=== PATIENT | male | born 1995 | race African-American/Black ===

== ENCOUNTER 2022-04-19 13:10 | Inpatient (IN) | payer OTHER ==
[2022-04-19 14:26] LABS: BASO % 0.3 % (0.0-1.0); EOS % 0.1 % (0.0-3.0); HEMOGLOBIN 14.4 g/dl (13.5-17.5); LYMPH # 1.3 10^3/uL (1.5-5.0); LYMPH % 14.2 % (24.0-44.0); MEAN CORPUSCULAR HEMOGLOBIN 25.7 pg (27.0-33.0); MEAN CORPUSCULAR HGB CONC 32.7 g/dl (32.0-36.5); MEAN CORPUSCULAR VOLUME 78.4 fl (80.0-96.0); MONO # 0.8 10^3/uL (0.0-0.8); MONO % 8.9 % (2.0-8.0); NEUTROPHILS # 7.2 10^3/uL (1.5-8.5); NEUTROPHILS % 76.2 % (36.0-66.0); PLATELET COUNT, AUTOMATED 290 10^3/uL (150-450); RED BLOOD COUNT 5.61 10^6/uL (4.30-6.10); WHITE BLOOD COUNT 9.5 10^3/uL (4.0-10.0)
[2022-04-19 14:55] LABS: ALBUMIN 4.3 GM/DL (3.2-5.2); ALT/SGPT 24 U/L (12-78); BILIRUBIN,DIRECT 0.2 MG/DL (0.0-0.2); BILIRUBIN,TOTAL 0.6 MG/DL (0.2-1.0); BLOOD UREA NITROGEN 17 MG/DL (7-18); CALCIUM LEVEL 9.1 MG/DL (8.5-10.1); CARBON DIOXIDE LEVEL 24 MEQ/L (21-32); CHLORIDE LEVEL 104 MEQ/L (98-107); CREATININE FOR GFR 1.22 MG/DL (0.70-1.30); ETHYL ALCOHOL (ETHANOL) < 0.003 % (0.000-0.010); GLOMERULAR FILTRATION RATE > 60.0 (>60); GLUCOSE, FASTING 105 MG/DL (70-100); POTASSIUM SERUM 4.1 MEQ/L (3.5-5.1); SALICYLATE LEVEL < 1.7 MG/DL (5.0-30.0); SODIUM LEVEL 137 MEQ/L (136-145); THYROID STIMULATING HORMONE 0.907 uIU/ML (0.358-3.740); TOTAL PROTEIN 7.7 GM/DL (6.4-8.2)
[2022-04-19 15:35] LABS: AMPHETAMINES LEVEL URINE NEGATIVE (NEGATIVE); BARBITURATES URINE NEGATIVE (NEGATIVE); BENZODIAZEPINES URINE NEGATIVE (NEGATIVE); CANNABINOIDS URINE NEGATIVE (NEGATIVE); COCAINE METABOLITE URINE NEGATIVE (NEGATIVE); METHADONE URINE NEGATIVE (NEGATIVE); OPIATES URINE NEGATIVE (NEGATIVE); PHENCYCLIDINE URINE NEGATIVE (NEGATIVE)
[2022-04-19] MEDS ORDERED: diazePAM 10MG/2ML SYRINGE (J3360 PER 5MG) IM ONE (16:15)
[2022-04-19] MEDS ORDERED: OLANZapine INTRAMUSCULAR 10MG VIAL IM ONE (16:15)
[2022-04-19] MEDS ORDERED: HOME MED LIST COMPLETE! XX SCH (19:35)
[2022-04-19 19:40] LABS: ACETAMINOPHEN LEVEL < 2.0 UG/ML (0.0-30.0)
[2022-04-20] MEDS ORDERED: OLANZapine INTRAMUSCULAR 10MG VIAL IM ONE (00:50)
[2022-04-20] MEDS ORDERED: diazePAM 2 MG TAB PO ONE (03:20)
[2022-04-20] MEDS ORDERED: diazePAM 5MG TABLET PO ONE ×2 (07:45→16:10)
[2022-04-20 12:10] LABS: RSV AMPLIFICATION NEGATIVE (NEGATIVE)
[2022-04-20] MEDS ORDERED: OLANZapine ORAL DISINTEGRATING TAB 5MG PO ONE (20:40)
[2022-04-21] MEDS ORDERED: diazePAM 5MG TABLET PO ONE ×2 (00:55→07:50)
[2022-04-21] MEDS ORDERED: HALOPERIDOL 5MG/ML VIAL (J1630 PER 1) IM STA (03:44)
[2022-04-21] MEDS: NICOTINE 21MG/24HR 1 EA TRANSDERMAL TD SCH (09:00)
[2022-04-21] MEDS ORDERED: MOM 30ML SUSPENSION UDC PO PRN (14:45)
[2022-04-21] MEDS ORDERED: MAALOX 30 ML SUSP *UDC PO PRN (14:45)
[2022-04-21 16:02] VITALS: BP 131/98
[2022-04-21] MEDS: traZODone 50 MG TAB PO PRN (21:07)
[2022-04-22] MEDS: LORazepam 2 MG TAB PO PRN (02:37)
[2022-04-22] MEDS: NICOTINE 21MG/24HR 1 EA TRANSDERMAL TD SCH (09:00)
[2022-04-22 18:08] VITALS: BP 143/96
[2022-04-22] MEDS: traZODone 50 MG TAB PO PRN (21:34)
[2022-04-22] MEDS: BENZTROPINE 1 MG TAB PO SCH (21:34)
[2022-04-22] MEDS: risperiDONE 1 MG TAB PO SCH (21:34)
[2022-04-22] MEDS: DIVALPROEX 250MG *ER* TAB PO SCH (21:34)
[2022-04-23] MEDS: LORazepam 2 MG TAB PO PRN (04:23)
[2022-04-23 07:00] VITALS: BP 123/78
[2022-04-23] MEDS: risperiDONE 2 MG TAB PO SCH ×2 (09:00→20:01)
[2022-04-23] MEDS: NICOTINE 21MG/24HR 1 EA TRANSDERMAL TD SCH (09:00)
[2022-04-23] MEDS: BENZTROPINE 1 MG TAB PO SCH ×2 (09:00→20:01)
[2022-04-23] MEDS: risperiDONE 1 MG TAB PO SCH (09:00)
[2022-04-23 10:37] VITALS: BP 131/78
[2022-04-23 13:47] LABS: CHOLESTEROL RISK RATIO 2.424 (<5)
[2022-04-23 18:14] VITALS: BP 148/81
[2022-04-23] MEDS: DIVALPROEX 250MG *ER* TAB PO SCH (20:00)
[2022-04-23] MEDS: traZODone 50 MG TAB PO PRN (20:00)
[2022-04-23] MEDS: ACETAMINOPHEN TAB 650MG DOSE (2X325MG) PO PRN (20:03)
[2022-04-24 06:33] VITALS: BP 132/79
[2022-04-24] MEDS: NICOTINE 21MG/24HR 1 EA TRANSDERMAL TD SCH (08:22)
[2022-04-24] MEDS: risperiDONE 2 MG TAB PO SCH ×2 (08:22→21:20)
[2022-04-24] MEDS: BENZTROPINE 1 MG TAB PO SCH ×2 (08:22→21:20)
[2022-04-24 10:36] LABS: BLOOD UREA NITROGEN 12 MG/DL (7-18); CARBON DIOXIDE LEVEL 28 MEQ/L (21-32); CHLORIDE LEVEL 107 MEQ/L (98-107); CREATININE FOR GFR 0.99 MG/DL (0.70-1.30); GLOMERULAR FILTRATION RATE > 60.0 (>60); GLUCOSE, FASTING 80 MG/DL (70-100); POTASSIUM SERUM 4.3 MEQ/L (3.5-5.1); SODIUM LEVEL 142 MEQ/L (136-145)
[2022-04-24] MEDS ORDERED: BENZTROPINE 2 MG TAB PO ONE (13:00)
[2022-04-24 18:00] VITALS: BP 128/73
[2022-04-24] MEDS: traZODone 50 MG TAB PO PRN (21:20)
[2022-04-24] MEDS: DIVALPROEX 500MG *ER* TAB PO SCH (21:20)
[2022-04-25 07:15] VITALS: BP 136/87
[2022-04-25] MEDS: NICOTINE 21MG/24HR 1 EA TRANSDERMAL TD SCH (09:00)
[2022-04-25] MEDS: BENZTROPINE 1 MG TAB PO SCH ×2 (09:37→20:56)
[2022-04-25] MEDS: risperiDONE 2 MG TAB PO SCH ×2 (09:37→20:56)
[2022-04-25 18:13] VITALS: BP 116/63
[2022-04-25] MEDS: traZODone 50 MG TAB PO PRN (20:56)
[2022-04-25] MEDS: DIVALPROEX 500MG *ER* TAB PO SCH (20:56)
[2022-04-26 06:00] VITALS: BP 134/81
[2022-04-26] MEDS: NICOTINE 21MG/24HR 1 EA TRANSDERMAL TD SCH (09:00)
[2022-04-26] MEDS: BENZTROPINE 1 MG TAB PO SCH ×2 (09:20→21:26)
[2022-04-26] MEDS: risperiDONE 2 MG TAB PO SCH ×2 (09:20→21:26)
[2022-04-26 16:06] VITALS: BP 150/87
[2022-04-26] MEDS: DIVALPROEX 500MG *ER* TAB PO SCH (21:26)
[2022-04-27 06:53] VITALS: BP 126/72
[2022-04-27] MEDS: NICOTINE 21MG/24HR 1 EA TRANSDERMAL TD SCH (09:00)
[2022-04-27] MEDS: BENZTROPINE 1 MG TAB PO SCH ×2 (09:42→21:08)
[2022-04-27] MEDS: risperiDONE 2 MG TAB PO SCH ×2 (09:42→21:08)
[2022-04-27 18:33] VITALS: BP 134/85
[2022-04-27] MEDS: DIVALPROEX 500MG *ER* TAB PO SCH (21:09)
[2022-04-28 06:48] VITALS: BP 129/86
[2022-04-28] MEDS: NICOTINE 21MG/24HR 1 EA TRANSDERMAL TD SCH (09:00)
[2022-04-28] MEDS: BENZTROPINE 1 MG TAB PO SCH ×2 (09:25→20:03)
[2022-04-28] MEDS: risperiDONE 2 MG TAB PO SCH ×2 (09:25→20:03)
[2022-04-28 18:55] VITALS: BP 132/66
[2022-04-28] MEDS: traZODone 50 MG TAB PO PRN (20:03)
[2022-04-28] MEDS: DIVALPROEX 500MG *ER* TAB PO SCH (20:04)
[2022-04-28] MEDS: LORazepam 2 MG TAB PO PRN (21:32)
[2022-04-29 07:04] VITALS: BP 120/86
[2022-04-29] MEDS: NICOTINE 21MG/24HR 1 EA TRANSDERMAL TD SCH (08:50)
[2022-04-29] MEDS: BENZTROPINE 1 MG TAB PO SCH ×2 (08:50→20:57)
[2022-04-29] MEDS: risperiDONE 2 MG TAB PO SCH ×2 (08:50→20:57)
[2022-04-29] MEDS: ACETAMINOPHEN TAB 650MG DOSE (2X325MG) PO PRN (17:25)
[2022-04-29 17:46] VITALS: BP 137/88
[2022-04-29] MEDS: traZODone 50 MG TAB PO PRN (20:56)
[2022-04-29] MEDS: DIVALPROEX 500MG *ER* TAB PO SCH (20:57)
[2022-04-30 06:42] VITALS: BP 103/61
[2022-04-30] MEDS: BENZTROPINE 1 MG TAB PO SCH ×2 (08:57→20:04)
[2022-04-30] MEDS: NICOTINE 21MG/24HR 1 EA TRANSDERMAL TD SCH (08:58)
[2022-04-30 18:41] VITALS: BP 124/68
[2022-04-30] MEDS: DIVALPROEX 500MG *ER* TAB PO SCH (20:04)
[2022-04-30] MEDS: risperiDONE 2 MG TAB PO SCH (20:04)
[2022-05-01 07:00] VITALS: BP 131/86
[2022-05-01] MEDS: NICOTINE 21MG/24HR 1 EA TRANSDERMAL TD SCH (09:00)
[2022-05-01] MEDS ORDERED: BENZTROPINE 1 MG TAB PO PRN (09:25)
[2022-05-01] MEDS: traZODone 50 MG TAB PO PRN (20:53)
[2022-05-01] MEDS: risperiDONE 2 MG TAB PO SCH (20:53)
[2022-05-01] MEDS: DIVALPROEX 500MG *ER* TAB PO SCH (20:54)
[2022-05-01] MEDS: ACETAMINOPHEN TAB 650MG DOSE (2X325MG) PO PRN (22:26)
[2022-05-02 06:00] VITALS: BP 133/76
[2022-05-02] MEDS: ACETAMINOPHEN TAB 650MG DOSE (2X325MG) PO PRN ×2 (07:31→22:18)
[2022-05-02] MEDS: NICOTINE 21MG/24HR 1 EA TRANSDERMAL TD SCH (09:00)
[2022-05-02 17:20] VITALS: BP 157/82
[2022-05-02] MEDS: traZODone 50 MG TAB PO PRN (20:10)
[2022-05-02] MEDS: DIVALPROEX 500MG *ER* TAB PO SCH (22:19)
[2022-05-02] MEDS: risperiDONE 3 MG TAB PO SCH (22:20)
[2022-05-03] MEDS: LORazepam 2 MG TAB PO PRN (02:30)
[2022-05-03 06:45] VITALS: BP 132/67
[2022-05-03] MEDS: NICOTINE 21MG/24HR 1 EA TRANSDERMAL TD SCH (09:00)
[2022-05-03 17:32] VITALS: BP 129/84
[2022-05-03] MEDS: traZODone 50 MG TAB PO PRN (20:29)
[2022-05-03] MEDS: risperiDONE 3 MG TAB PO SCH (20:29)
[2022-05-03] MEDS: ACETAMINOPHEN TAB 650MG DOSE (2X325MG) PO PRN (20:29)
[2022-05-03] MEDS: DIVALPROEX 500MG *ER* TAB PO SCH (20:29)
[2022-05-04 06:00] VITALS: BP 135/87
[2022-05-04] MEDS: NICOTINE 21MG/24HR 1 EA TRANSDERMAL TD SCH (07:52)
[2022-05-04] MEDS: ACETAMINOPHEN TAB 650MG DOSE (2X325MG) PO PRN ×2 (10:44→19:20)
[2022-05-04] MEDS ORDERED: PALIPERIDONE PALMITATE 234MG/1.5ML INJ (INVEGA)(FREE PSY INPT ONLY) IM ONE (13:00)
[2022-05-04 18:17] VITALS: BP 129/72
[2022-05-04] MEDS: traZODone 50 MG TAB PO PRN (20:12)
[2022-05-04] MEDS: DIVALPROEX 500MG *ER* TAB PO SCH (20:12)
[2022-05-04] MEDS: QUEtiapine FUMARATE 50MG TAB PO SCH (22:43)
[2022-05-05 06:35] VITALS: BP 142/89
[2022-05-05] MEDS: NICOTINE 21MG/24HR 1 EA TRANSDERMAL TD SCH (09:00)
[2022-05-05] MEDS: QUEtiapine FUMARATE 50MG TAB PO SCH ×2 (09:31→20:05)
[2022-05-05 18:14] VITALS: BP 154/88
[2022-05-05] MEDS: DIVALPROEX 500MG *ER* TAB PO SCH (20:05)
[2022-05-06] MEDS: traZODone 50 MG TAB PO PRN ×2 (01:11→20:04)
[2022-05-06 06:41] VITALS: BP 135/92
[2022-05-06] MEDS: QUEtiapine FUMARATE 50MG TAB PO SCH ×3 (09:00→20:04)
[2022-05-06] MEDS: NICOTINE 21MG/24HR 1 EA TRANSDERMAL TD SCH (09:00)
[2022-05-06 19:17] VITALS: BP 134/84
[2022-05-06] MEDS: DIVALPROEX 500MG *ER* TAB PO SCH (20:04)
[2022-05-07 06:38] VITALS: BP 125/84
[2022-05-07] MEDS ORDERED: PALIPERIDONE PALMITATE 156MG/1ML INJ(INVEGA)(FREE PSY INPT ONLY) IM ONE (09:00)
[2022-05-07] MEDS: NICOTINE 21MG/24HR 1 EA TRANSDERMAL TD SCH (09:00)
[2022-05-07] MEDS ORDERED: NICO21PAT TD (09:04)
[2022-05-07] MEDS ORDERED: BENZ-52 PO (09:04)
[2022-05-07] MEDS ORDERED: TRAZ-252 PO (09:04)
[2022-05-07] MEDS ORDERED: DEPA500T2 PO ×2 (09:04→09:05)
[2022-05-07] MEDS ORDERED: INVE234I IM (09:05)
[2022-05-07] MEDS: QUEtiapine FUMARATE 50MG TAB PO SCH (09:12)
== END 2022-05-07 09:56 | disposition home or self-care (01) | DRG 885 ==
LOC: M ED 13:10 → M ED INP 04-21 15:27 → M PSY 04-21 15:57
PROVIDERS: ADMIT Psychiatry & Neurology Psychiatry; ATTEND Psychiatry & Neurology Psychiatry
DX: F25.0 Schizoaffective disorder, bipolar type (principal); M62.82 Rhabdomyolysis; F12.159 Cannabis abuse with psychotic disorder, unspecified; Z20.822 Contact with and (suspected) exposure to COVID-19

== ENCOUNTER 2022-06-09 10:53 | Inpatient (IN) | payer OTHER ==
[~2022-06-09] VITALS: Ht 185.4 cm; Wt 90.9 kg
[~2022-06-09 10:53] MED LIST: BENZ-52 PO; DEPA500T2 PO; INVE234I IM; NICO21PAT TD; TRAZ-252 PO
[2022-06-09 11:40] LABS: HEMATOCRIT 43.2 % (42.0-52.0); HEMOGLOBIN 13.6 g/dl (13.5-17.5); MEAN CORPUSCULAR HEMOGLOBIN 25.5 pg (27.0-33.0); MEAN CORPUSCULAR HGB CONC 31.5 g/dl (32.0-36.5); MEAN CORPUSCULAR VOLUME 81.1 fl (80.0-96.0); PLATELET COUNT, AUTOMATED 265 10^3/uL (150-450); RED BLOOD COUNT 5.33 10^6/uL (4.30-6.10); WHITE BLOOD COUNT 6.8 10^3/uL (4.0-10.0)
[2022-06-09 12:11] LABS: AMPHETAMINES LEVEL URINE NEGATIVE (NEGATIVE); BARBITURATES URINE NEGATIVE (NEGATIVE); BENZODIAZEPINES URINE NEGATIVE (NEGATIVE); CANNABINOIDS URINE NEGATIVE (NEGATIVE); COCAINE METABOLITE URINE NEGATIVE (NEGATIVE); METHADONE URINE NEGATIVE (NEGATIVE); OPIATES URINE NEGATIVE (NEGATIVE); PHENCYCLIDINE URINE NEGATIVE (NEGATIVE)
[2022-06-09 12:27] LABS: ACETAMINOPHEN LEVEL < 2.0 UG/ML (10.0-30.0); ALBUMIN 4.1 GM/DL (3.2-5.2); ALT/SGPT 22 U/L (12-78); BILIRUBIN,DIRECT 0.1 MG/DL (0.0-0.2); BILIRUBIN,TOTAL 0.3 MG/DL (0.2-1.0); BLOOD UREA NITROGEN 15 MG/DL (7-18); CALCIUM LEVEL 9.7 MG/DL (8.5-10.1); CARBON DIOXIDE LEVEL 31 MEQ/L (21-32); CHLORIDE LEVEL 104 MEQ/L (98-107); CREATININE FOR GFR 1.03 MG/DL (0.70-1.30); ETHYL ALCOHOL (ETHANOL) 0.003 % (0.000-0.010); GLOMERULAR FILTRATION RATE > 60.0 (>60); GLUCOSE, FASTING 96 MG/DL (70-100); POTASSIUM SERUM 4.1 MEQ/L (3.5-5.1); SALICYLATE LEVEL < 1.7 MG/DL (5.0-30.0); SODIUM LEVEL 139 MEQ/L (136-145); THYROID STIMULATING HORMONE 0.465 uIU/ML (0.358-3.740); TOTAL PROTEIN 7.7 GM/DL (6.4-8.2)
[2022-06-09 12:31] LABS: RSV AMPLIFICATION NEGATIVE (NEGATIVE)
[2022-06-09] MEDS ORDERED: ACETAMINOPHEN TAB 650MG DOSE (2X325MG) PO ONE (14:30)
[2022-06-09] MEDS ORDERED: INVE234I IM (14:52)
[2022-06-09] MEDS ORDERED: HOME MED LIST COMPLETE! XX SCH (14:55)
[2022-06-11] MEDS ORDERED: ACETAMINOPHEN TAB 650MG DOSE (2X325MG) PO ONE (18:20)
[2022-06-11] MEDS ORDERED: ACETAMINOPHEN TAB 650MG DOSE (2X325MG) PO PRN (19:05)
[2022-06-11] MEDS ORDERED: MAALOX 30 ML SUSP *UDC PO PRN (19:05)
[2022-06-11] MEDS ORDERED: MOM 30ML SUSPENSION UDC PO PRN (19:05)
[2022-06-11] MEDS ORDERED: NICOTINE 21MG/24HR 1 EA TRANSDERMAL TD PRN (19:05)
[2022-06-12 01:20] VITALS: BP 115/77
[2022-06-12 16:19] VITALS: BP 120/66
[2022-06-12] MEDS: ARIPiprazole 10 MG TAB PO SCH (20:33)
[2022-06-13 06:29] VITALS: BP 119/67
[2022-06-13 16:48] VITALS: BP 123/75
[2022-06-13] MEDS: ARIPiprazole 10 MG TAB PO SCH (20:25)
[2022-06-13] MEDS: traZODone 50 MG TAB PO PRN (20:25)
[2022-06-14 06:20] VITALS: BP 119/74
[2022-06-14 17:19] VITALS: BP 122/62
[2022-06-14] MEDS: traZODone 50 MG TAB PO PRN (20:59)
[2022-06-14] MEDS: ARIPiprazole 10 MG TAB PO SCH (20:59)
[2022-06-14] MEDS: BENZTROPINE 1 MG TAB PO PRN (21:01)
[2022-06-15 06:31] VITALS: BP 121/71
[2022-06-15 18:43] VITALS: BP 121/78
[2022-06-15] MEDS: ARIPiprazole 10 MG TAB PO SCH (21:12)
[2022-06-15] MEDS: traZODone 50 MG TAB PO PRN (21:12)
[2022-06-15] MEDS: BENZTROPINE 1 MG TAB PO PRN (21:12)
[2022-06-16 06:40] VITALS: BP 128/80
[2022-06-16 18:29] VITALS: BP 120/73
[2022-06-16] MEDS: ARIPiprazole 10 MG TAB PO SCH (20:41)
[2022-06-16] MEDS: traZODone 50 MG TAB PO PRN (20:41)
[2022-06-17 06:49] VITALS: BP 135/63
[2022-06-17] MEDS ORDERED: BENZ-52 PO (10:24)
[2022-06-17] MEDS ORDERED: TRAZ-252 PO (10:24)
[2022-06-17] MEDS ORDERED: NICO21PAT TD (10:24)
[2022-06-17] MEDS ORDERED: ABIL10TA9 PO (10:24)
== END 2022-06-17 13:40 | disposition home or self-care (01) | DRG 885 ==
LOC: M ED 10:53 → M ED INP 06-11 19:05 → M PSY 06-12 01:18
PROVIDERS: ADMIT Psychiatry & Neurology Psychiatry; ATTEND Student in an Organized Health Care Education/Training Program
DX: F25.0 Schizoaffective disorder, bipolar type (principal); R51.9 Headache, unspecified; Z79.899 Other long term (current) drug therapy